=== PATIENT | male | born 1985 | race Caucasian/White ===

== ENCOUNTER 2016-03-21 09:27 | Emergency (ER) | payer OTHER ==
[2016-03-21 09:32] VITALS: BP 125/85; PULSE 88; RESP 16; TEMP 97.5; O2SAT 95
[2016-03-21] MEDS ORDERED: SKIN ADHESIVE (DERMABOND) 1 EACH TP ONE (09:53)
--- NOTE | 2016-03-21 09:56 | EDPHY ---
H & P Smoking Status: Never smoked Time Seen by Provider: 03/21/16 09:43 HPI/ROS: CHIEF COMPLAINT: Left thumb laceration HISTORY OF PRESENT ILLNESS: 30-year-old male right-hand dominant was cutting onions and sustained superficial laceration left distal thumb. No paresthesia no sensory motor deficit tetanus up-to-date. PHYSICAL EXAM (Prior to examination, patient consented to physical exam, hands were washed and my usual and customary physical exam procedures followed) 1) GENERAL: Well-developed, well-nourished, alert and oriented. Appears to be in no acute distress. 2) HEAD: Normocephalic 3) HEENT: sclera anicteric 4) LUNGS: Breathing comfortably. 5) SKIN: left distal thumb 5 mm superficial laceration. Not involving the nail bed. No signs of infection. Negative kanavel. (Kenneth Mccarty) Constitutional: Initial Vital Signs Temperature (C) 36.4 C 03/21/16 09:29 Heart Rate 88 03/21/16 09:29 Respiratory Rate 16 03/21/16 09:29 Blood Pressure 125/85 H 03/21/16 09:29 O2 Sat (%) 95 03/21/16 09:29 O2 Delivery Mode Room Air Allergies/Adverse Reactions: No Known Allergies Allergy (Unverified 03/21/16 09:29) Home Medications: Medication Instructions Recorded NK [No Known Home Meds] 03/21/16 MDM/Departure - MDM Procedures: Procedure: Laceration repair with tissue adhesive Verbal consent was obtained from the patient. The 5 mm laceration on the left thumb. The wound was scrubbed and explored to its base with a gloved finger. No foreign body seen, no foreign bodies palpated. There were no deep structures involved. The wound was repaired with tissue adhesive. The procedure was performed by myself. Patient has been informed that scarring will occur, although every effort has been made to minimize this. (Kenneth Mccarty ) Medications Given: Discontinued Medications Octyl Cyanoacrylate (Dermabond) 1 each TP EDNOW ONE Stop: 03/21/16 09:54 Last Admin: 03/21/16 11:06 Dose: 1 each ED Course/Re-evaluation: The patient wasevaluatedand managed by themmelevel provider. My co- signature indicates that Chato reviewed this chart and I agree with the findings and plan of care asdocumented. I am the secondary supervising physician. (Annalisa Santiago) - Depart Disposition: Home, Routine, Self-Care Clinical Impression: Laceration of left thumb Qualifiers: Encounter type: initial encounter Qualified Code(s): S61.012A - Laceration without foreign body of left thumb without damage to nail, initial encounter Condition: Good Instructions: Laceration (ED), Skin Adhesive Care (ED) Additional Instructions: Return to the ER if you develop redness, swelling, discharge, warmth to the wound, red streaks going up your arm , or any other symptoms that concern you. Stand Alone Forms: Work Comp Follow Up Referrals: Follow-up, with your work comp provider in 2 days [Other] - As per Instructions
== END 2016-03-21 11:17 | disposition home or self-care (01) ==
PROC: 0HQGXZZ Repair Left Hand Skin, External Approach (ICD-10-PCS; principal; 2016-03-21)
DX: S61.012A Laceration without foreign body of left thumb without damage to nail, initial encounter (principal); W45.8XXA Other foreign body or object entering through skin, initial encounter; Y99.8 Other external cause status; Y93.89 Activity, other specified